=== PATIENT | female | born 1955 | race Hispanic/Latino ===

== ENCOUNTER → 2018-08-23 | Outpatient (CLI) | payer OTHER ==
[~2018-08-23] MED LIST: ASPI-555 PO; ATOR20TA65 PO; METO50TA18 PO; PANT40TA PO; VENTOLIN IH
== END | disposition home or self-care (01) ==
LOC: RAH 08:36
PROVIDERS: ATTEND Internal Medicine Cardiovascular Disease
DX: R00.2 Palpitations (principal); R07.89 Other chest pain
CPT/HCPCS: 78452; 93017; A9500 ×2

== ENCOUNTER → 2019-01-16 | Outpatient (CLI) | payer OTHER ==
[2019-01-16 10:49] LABS: HEMOGLOBIN A1C 6.8 % (4.0-6.0)
[2019-01-16 10:56] LABS: ALBUMIN 3.7 g/dL (3.5-5.0); BILIRUBIN,TOTAL 1.3 mg/dL (0.2-1.0)
== END | disposition home or self-care (01) ==
LOC: LAB 10:08
PROVIDERS: ATTEND Family Medicine
DX: I11.9 Hypertensive heart disease without heart failure (principal); E78.00 Pure hypercholesterolemia, unspecified; E11.59 Type 2 diabetes mellitus with other circulatory complications; E55.9 Vitamin D deficiency, unspecified
CPT/HCPCS: 36415; 80053; 80061; 82043; 82306; 83036

== ENCOUNTER → 2019-01-23 | Outpatient (CLI) | payer OTHER | END | disposition home or self-care (01) | LOC: OIH 13:18 | PROVIDERS: ATTEND Family Medicine | DX: R07.9 Chest pain, unspecified (principal) | CPT/HCPCS: 71100; 72070 ==

== ENCOUNTER → 2019-05-25 | Outpatient (CLI) | payer OTHER | END | disposition home or self-care (01) | LOC: OIH 10:12 | PROVIDERS: ATTEND Family Medicine | DX: M16.11 Unilateral primary osteoarthritis, right hip (principal); M85.861 Other specified disorders of bone density and structure, right lower leg | CPT/HCPCS: 73502 ==

== ENCOUNTER 2019-08-24 06:57 | Day surgery (SDC) | payer OTHER ==
[~2019-08-24] VITALS: Ht 152.4 cm; Wt 67.1 kg
[~2019-08-24 06:57] MED LIST changes: +ATOR-2 PO; -ATOR20TA65 PO; +CETI10CA5 PO; +CHOL500062 PO; +FEXO180T94 PO; +FLUT16H NASAL; +FOLI0.4T2 PO; +LISI2.5T2 PO; +METF500S7 PO; -PANT40TA PO; +UBID100C10 PO; -VENTOLIN IH; +VITAMIN B12 PO
[2019-08-24] MEDS ORDERED: SODIUM CHLORIDE 0.9% 1000ML 1,000 ML IV ONE (07:05)
[2019-08-24 08:26] VITALS: BP 145/71
[2019-08-24] MEDS ORDERED: LIDOCAINE HCL 2% 20ML ONE (09:20)
[2019-08-24] MEDS ORDERED: PROPOFOL 10 MG/ML 20ML VIAL IV ONE ×4 (09:20→09:58)
[2019-08-24 10:03] VITALS: BP 104/55
[2019-08-24 10:08] VITALS: BP 102/57
[2019-08-24 10:14] VITALS: BP 113/61
[2019-08-24 10:20] VITALS: BP 118/67
[2019-08-24 10:30] VITALS: BP 125/72
== END 2019-08-24 10:45 | disposition home or self-care (01) ==
LOC: ENDO 06:57 → DAH 06:57 → ENDO 10:45
PROVIDERS: ATTEND Internal Medicine Gastroenterology
DX: K63.5 Polyp of colon (principal); K29.50 Unspecified chronic gastritis without bleeding; K64.0 First degree hemorrhoids; K57.30 Diverticulosis of large intestine without perforation or abscess without bleeding; E11.9 Type 2 diabetes mellitus without complications; I10 Essential (primary) hypertension; I25.10 Atherosclerotic heart disease of native coronary artery without angina pectoris; F41.9 Anxiety disorder, unspecified; F32.9 Major depressive disorder, single episode, unspecified; E78.2 Mixed hyperlipidemia; Z80.0 Family history of malignant neoplasm of digestive organs; Z79.899 Other long term (current) drug therapy; Z86.010 Personal history of colon polyps; Z90.710 Acquired absence of both cervix and uterus; Z95.1 Presence of aortocoronary bypass graft; Z79.82 Long term (current) use of aspirin; Z72.89 Other problems related to lifestyle
CPT/HCPCS: 43239; 45380; 82948 ×2; A4215; A4221; A4222; A4223; A4606; A4620; A4663; J2704 ×4; J3490; J7030

== ENCOUNTER → 2019-11-16 | Outpatient (CLI) | payer OTHER ==
[2019-11-16 09:26] LABS: BASOPHILS % (AUTO) 0.4 % (0.0-5.0); EOSINOPHILS % (AUTO) 3.5 % (0.0-8.0); HEMATOCRIT 41.7 % (36-48); LYMPHOCYTES % (AUTO) 36.6 % (21.0-51.0); MEAN CORPUSCULAR HEMOGLOBIN 29.8 pg (27.0-33.0); MEAN CORPUSCULAR HGB CONC 31.9 g/dL (32.0-36.0); MEAN CORPUSCULAR VOLUME 93.3 fL (79-99); NEUTROPHILS % (AUTO) 52.2 % (40.0-77.0); PLATELET COUNT (AUTO) 254 K/uL (130-400); RED BLOOD CELL COUNT(AUTO) 4.47 MIL/uL (4.00-5.50); RED CELL DISTRIBUTION WIDTH 12.7 % (11.0-15.5)
[2019-11-16 09:34] LABS: HEMOGLOBIN A1C 7.4 % (4.0-6.0)
[2019-11-16 09:46] LABS: ALBUMIN 3.6 g/dL (3.5-5.0); BILIRUBIN,TOTAL 1.4 mg/dL (0.2-1.0); CREATININE 1.3 mg/dL (0.5-1.5); POTASSIUM 4.2 mmol/L (3.5-5.1); THYROID STIMULATING HORMONE 3.46 uIU/mL (0.36-3.74); TOTAL PROTEIN, SERUM 7.7 g/dL (6.0-8.3)
== END | disposition home or self-care (01) ==
LOC: LAB 08:49
PROVIDERS: ATTEND Family Medicine
DX: I11.9 Hypertensive heart disease without heart failure (principal); E55.9 Vitamin D deficiency, unspecified; F32.1 Major depressive disorder, single episode, moderate; E11.59 Type 2 diabetes mellitus with other circulatory complications; E66.09 Other obesity due to excess calories
CPT/HCPCS: 36415; 80053; 80061; 82043; 82306; 82570; 83036; 84443; 85025

== ENCOUNTER 2020-08-22 02:21 | Inpatient (IN) | payer OTHER, MEDICARE ==
[~2020-08-22] VITALS: Ht 152.4 cm; Wt 71.4 kg
[~2020-08-22 02:21] MED LIST changes: -ASPI-555 PO; +ASPI-556 PO
[2020-08-22] MEDS ORDERED: ONDANSETRON HCL 4 MG/2 ML VIAL ONE (02:38)
[2020-08-22] MEDS ORDERED: FAMOTIDINE/PF 20 MG/2 ML VIAL IV ONE (02:38)
[2020-08-22] MEDS ORDERED: PANTOPRAZOLE 40 MG/VIAL ONE (02:38)
[2020-08-22] MEDS ORDERED: METOCLOPRAMIDE 10 MG/2 ML VIAL ONE (02:38)
[2020-08-22] MEDS ORDERED: SODIUM CHLORIDE 0.9% 1000ML 1,000 ML IV ONE (02:39)
[2020-08-22 02:59] LABS: BASOPHILS % (AUTO) 0.2 % (0.0-5.0); EOSINOPHILS % (AUTO) 1.3 % (0.0-8.0); HEMATOCRIT 39.5 % (36-48); MEAN CORPUSCULAR HEMOGLOBIN 30.6 pg (27.0-33.0); MEAN CORPUSCULAR HGB CONC 33.9 g/dL (32.0-36.0); MEAN CORPUSCULAR VOLUME 90.2 fL (79-99); MONOCYTES % (AUTO) 6.2 % (3.0-13.0); NEUTROPHILS % (AUTO) 75.9 % (40.0-77.0); PLATELET COUNT (AUTO) 249 K/uL (130-400); RED BLOOD CELL COUNT(AUTO) 4.38 MIL/uL (4.00-5.50); RED CELL DISTRIBUTION WIDTH 12.4 % (11.0-15.5)
[2020-08-22 03:12] LABS: CREATININE 1.2 mg/dL (0.5-1.5); POTASSIUM 3.7 mmol/L (3.5-5.1)
[2020-08-22 03:16] LABS: TOTAL PROTEIN, SERUM 7.6 g/dL (6.0-8.3)
[2020-08-22] MEDS ORDERED: LIDOCAINE HCL 2% VISCOUS 15 ML UDCUP ONE (04:10)
[2020-08-22] MEDS ORDERED: MAG HYDROX/AL HYDROX/SIMETH ES 30 ML SUSP UDCUP ONE (04:10)
[2020-08-22] MEDS ORDERED: ZOSYN 3.375GM+NS 50ML 50 ML IV ONE ×2 (05:04→14:32)
[2020-08-22] MEDS ORDERED: MORPHINE SULFATE 2 MG/ML 1ML SYG ONE (05:05)
[2020-08-22] MEDS ORDERED: HYDRALAZINE HCL 20 MG/ML VIAL ONE (06:12)
[2020-08-22] MEDS ORDERED: ONDANSETRON HCL 4 MG/2 ML VIAL IVP PRN (07:15)
[2020-08-22] MEDS ORDERED: MORPHINE SULFATE 2 MG/ML 1ML SYG IVP PRN (07:15)
[2020-08-22] MEDS ORDERED: ACETAMINOPHEN 650 MG SUPPOSITORY RC PRN (07:30)
[2020-08-22] MEDS: LACTATED RINGERS 1000ML 1,000 ML IV SCH ×2 (07:30→20:50)
[2020-08-22] MEDS ORDERED: HYDRALAZINE HCL 20 MG/ML VIAL IV PRN (07:30)
[2020-08-22] MEDS: PANTOPRAZOLE 40 MG/VIAL IVP SCH (09:00)
[2020-08-22] MEDS: ZOSYN 3.375GM+NS 50ML 50 ML IV SCH ×2 (13:00→21:09)
[2020-08-22 16:30] VITALS: BP 142/70
[2020-08-22 20:00] VITALS: BP 160/76
[2020-08-23] VITALS: BP 150/63
[2020-08-23 04:00] VITALS: BP 150/62
[2020-08-23] MEDS: ZOSYN 3.375GM+NS 50ML 50 ML IV SCH ×3 (05:18→20:25)
[2020-08-23] MEDS: PANTOPRAZOLE 40 MG/VIAL IVP SCH (08:47)
[2020-08-23] MEDS: LACTATED RINGERS 1000ML 1,000 ML IV SCH ×3 (08:47→21:30)
[2020-08-23] MEDS: [UNRECOGNIZED DRUG - REMARK] PO SCH (09:00)
[2020-08-23 09:19] LABS: BASOPHILS % (AUTO) 0.3 % (0.0-5.0); EOSINOPHILS % (AUTO) 2.4 % (0.0-8.0); HEMATOCRIT 36.7 % (36-48); LYMPHOCYTES % (AUTO) 28.5 % (21.0-51.0); MEAN CORPUSCULAR HGB CONC 34.3 g/dL (32.0-36.0); MEAN CORPUSCULAR VOLUME 90.2 fL (79-99); MONOCYTES % (AUTO) 9.4 % (3.0-13.0); NEUTROPHILS % (AUTO) 59.2 % (40.0-77.0); PLATELET COUNT (AUTO) 201 K/uL (130-400); RED BLOOD CELL COUNT(AUTO) 4.07 MIL/uL (4.00-5.50); RED CELL DISTRIBUTION WIDTH 12.7 % (11.0-15.5); WHITE BLOOD COUNT (AUTO) 8.6 K/uL (4.8-10.8)
[2020-08-23 09:30] VITALS: BP 152/79
[2020-08-23 09:34] LABS: ALBUMIN 3.3 g/dL (3.5-5.0); BILIRUBIN,TOTAL 2.8 mg/dL (0.2-1.0); CREATININE 1.2 mg/dL (0.5-1.5); POTASSIUM 3.7 mmol/L (3.5-5.1); TOTAL PROTEIN, SERUM 6.7 g/dL (6.0-8.3)
[2020-08-23] MEDS: FLUTICASONE PROPIONATE 50MCG/SPRAY 16 GM BOTTLE NS SCH (10:16)
[2020-08-23 13:55] VITALS: BP 132/89
[2020-08-23 17:06] VITALS: BP 117/69
--- NOTE | 2020-08-23 17:20 | NUR ---
INITIAL SW spoke with patient. Patient lives with spouse, Param Granger. No home services. DME: [facility], glucometer (no insulin). Patient drives and is able to complete ADL's independently. PCP is Dr. Maria Teresa Benitez. Pharmacy is [facility]. DCP is home. Addendum: 08/23/20 at 1722 by TIRSO BEAVERS SS Amended: Links added.
[2020-08-23 20:04] VITALS: BP 126/64
[2020-08-23] MEDS: METOPROLOL TARTRATE 50 MG TAB PO SCH (20:26)
[2020-08-23] MEDS: LISINOPRIL 2.5 MG TABLET PO SCH (20:26)
[2020-08-23] MEDS: ATORVASTATIN CALCIUM 40 MG TABLET PO SCH (20:26)
[2020-08-23] MEDS: CETIRIZINE HCL 5 MG TABLET PO SCH (20:28)
[2020-08-23] MEDS: FOLIC ACID 1 MG TABLET PO SCH (20:28)
[2020-08-23] MEDS: CHOLECALCIFEROL 5000 UNIT PO SCH (20:28)
[2020-08-24] VITALS (22 sets, daily range): BP systolic 97–176; BP diastolic 47–85
[2020-08-24] MEDS: ZOSYN 3.375GM+NS 50ML 50 ML IV SCH ×3 (04:31→19:47)
[2020-08-24 05:47] LABS: HEMATOCRIT 34.3 % (36-48); MEAN CORPUSCULAR HEMOGLOBIN 30.2 pg (27.0-33.0); MEAN CORPUSCULAR HGB CONC 33.5 g/dL (32.0-36.0); RED BLOOD CELL COUNT(AUTO) 3.81 MIL/uL (4.00-5.50); RED CELL DISTRIBUTION WIDTH 12.5 % (11.0-15.5); WHITE BLOOD COUNT (AUTO) 6.8 K/uL (4.8-10.8)
[2020-08-24 06:37] LABS: CREATININE 1.2 mg/dL (0.5-1.5); POTASSIUM 3.7 mmol/L (3.5-5.1)
[2020-08-24] MEDS: [UNRECOGNIZED DRUG - REMARK] PO SCH (09:00)
[2020-08-24] MEDS ORDERED: IOHEXOL-350 50ML VIAL IV ONE (10:14)
[2020-08-24] MEDS: FLUTICASONE PROPIONATE 50MCG/SPRAY 16 GM BOTTLE NS SCH (10:27)
[2020-08-24] MEDS: PANTOPRAZOLE 40 MG/VIAL IVP SCH (10:27)
[2020-08-24] MEDS ORDERED: FENTANYL CITRATE PF 50 MCG/1 ML 2ML VIAL ONE (11:51)
[2020-08-24] MEDS ORDERED: MIDAZOLAM HCL 1 MG/ML 2ML VIAL ONE ×2 (11:52→12:35)
[2020-08-24] MEDS ORDERED: GLUCAGON 1MG KIT 1 MG ML ONE (11:52)
[2020-08-24] MEDS: INDOMETHACIN 50 MG SUPP.RECT RC SCH ×2 (12:40→14:00)
[2020-08-24] MEDS: LACTATED RINGERS 1000ML 1,000 ML IV SCH (14:46)
[2020-08-24] MEDS: CETIRIZINE HCL 5 MG TABLET PO SCH (17:56)
[2020-08-24] MEDS: FOLIC ACID 1 MG TABLET PO SCH (19:44)
[2020-08-24] MEDS: ATORVASTATIN CALCIUM 40 MG TABLET PO SCH (19:44)
[2020-08-24] MEDS: METOPROLOL TARTRATE 50 MG TAB PO SCH (19:45)
[2020-08-24] MEDS: CHOLECALCIFEROL 5000 UNIT PO SCH (19:45)
[2020-08-24] MEDS: LISINOPRIL 2.5 MG TABLET PO SCH (19:45)
[2020-08-25] VITALS (26 sets, daily range): BP systolic 104–170; BP diastolic 49–89
[2020-08-25] MEDS: LACTATED RINGERS 1000ML 1,000 ML IV SCH (02:03)
[2020-08-25] MEDS: ZOSYN 3.375GM+NS 50ML 50 ML IV SCH ×3 (04:34→13:00)
[2020-08-25 05:51] LABS: HEMATOCRIT 34.8 % (36-48); MEAN CORPUSCULAR HEMOGLOBIN 30.4 pg (27.0-33.0); MEAN CORPUSCULAR HGB CONC 34.2 g/dL (32.0-36.0); RED BLOOD CELL COUNT(AUTO) 3.91 MIL/uL (4.00-5.50); RED CELL DISTRIBUTION WIDTH 12.3 % (11.0-15.5); WHITE BLOOD COUNT (AUTO) 8.4 K/uL (4.8-10.8)
[2020-08-25 06:05] LABS: INR 1.07 (0.85-1.15); PROTHROMBIN TIME 11.4 SEC (9.6-11.6)
[2020-08-25 06:06] LABS: CREATININE 1.1 mg/dL (0.5-1.5); POTASSIUM 3.8 mmol/L (3.5-5.1)
[2020-08-25] MEDS: [UNRECOGNIZED DRUG - REMARK] PO SCH (09:00)
[2020-08-25] MEDS: FLUTICASONE PROPIONATE 50MCG/SPRAY 16 GM BOTTLE NS SCH (09:00)
[2020-08-25] MEDS: PANTOPRAZOLE 40 MG/VIAL IVP SCH (09:40)
[2020-08-25] MEDS ORDERED: SODIUM CHLORIDE 0.9% 1000ML 1,000 ML IV ONE (11:11)
[2020-08-25] MEDS ORDERED: LIDOCAINE PF 2% 5ML ABBOJECT ONE ×2 (11:34→11:40)
[2020-08-25] MEDS ORDERED: DEXAMETHASONE SOD PHOSPHATE 10MG/ML 1ML VIAL ONE (11:34)
[2020-08-25] MEDS ORDERED: SUCCINYLCHOLINE CHLORIDE 20 MG/ML 10 ML VIAL ONE (11:34)
[2020-08-25] MEDS ORDERED: ROCURONIUM 10MG/1ML SYR 10 MG/ML ML ONE (11:35)
[2020-08-25] MEDS ORDERED: PROPOFOL 10 MG/ML 20ML VIAL IV ONE ×2 (11:35→11:44)
[2020-08-25] MEDS ORDERED: ONDANSETRON HCL 4 MG/2 ML VIAL ONE (11:35)
[2020-08-25] MEDS ORDERED: MIDAZOLAM HCL 1 MG/ML 2ML VIAL ONE (11:35)
[2020-08-25] MEDS ORDERED: FENTANYL CITRATE PF 50 MCG/1 ML 2ML VIAL ONE (11:35)
[2020-08-25] MEDS ORDERED: GLYCOPYRROLATE 1 MG/5 ML SYRINGE ONE (11:35)
[2020-08-25] MEDS ORDERED: NEOSTIGMINE 5MG/5ML SYR IV ONE (11:35)
[2020-08-25] MEDS ORDERED: BUPIVACAINE/PF 0.5% 10ML VIAL ONE (12:15)
[2020-08-25] MEDS ORDERED: MEPERIDINE-PF 25 MG/ML SYG ONE (13:22)
[2020-08-25] MEDS: CETIRIZINE HCL 5 MG TABLET PO SCH (17:59)
[2020-08-25] MEDS: CHOLECALCIFEROL 5000 UNIT PO SCH (21:00)
[2020-08-26] MEDS: ATORVASTATIN CALCIUM 40 MG TABLET PO SCH (00:03)
[2020-08-26] MEDS: FOLIC ACID 1 MG TABLET PO SCH ×2 (00:04→21:05)
[2020-08-26] MEDS: LISINOPRIL 2.5 MG TABLET PO SCH ×2 (00:04→21:03)
[2020-08-26] MEDS: METOPROLOL TARTRATE 50 MG TAB PO SCH ×2 (00:04→21:04)
[2020-08-26] MEDS: ZOSYN 3.375GM+NS 50ML 50 ML IV SCH ×4 (00:07→21:05)
[2020-08-26 04:00] VITALS: BP 137/57
[2020-08-26 06:31] LABS: ALBUMIN 3.1 g/dL (3.5-5.0); BILIRUBIN,TOTAL 4.2 mg/dL (0.2-1.0); CREATININE 1.2 mg/dL (0.5-1.5); MAGNESIUM 2.8 mg/dL (1.80-2.40); POTASSIUM 3.4 mmol/L (3.5-5.1); TOTAL PROTEIN, SERUM 6.8 g/dL (6.0-8.3)
[2020-08-26] MEDS: [UNRECOGNIZED DRUG - REMARK] PO SCH (07:42)
[2020-08-26 07:54] VITALS: BP 146/88
[2020-08-26] MEDS: PANTOPRAZOLE 40 MG/VIAL IVP SCH (08:50)
[2020-08-26] MEDS: LACTATED RINGERS 1000ML 1,000 ML IV SCH ×2 (08:50→17:21)
[2020-08-26] MEDS: FLUTICASONE PROPIONATE 50MCG/SPRAY 16 GM BOTTLE NS SCH (08:50)
[2020-08-26 11:29] VITALS: BP 142/69
[2020-08-26] MEDS: CETIRIZINE HCL 5 MG TABLET PO SCH (16:02)
[2020-08-26 17:56] VITALS: BP 136/92
[2020-08-26 19:30] VITALS: BP 118/65
[2020-08-26] MEDS: CHOLECALCIFEROL 5000 UNIT PO SCH (21:00)
[2020-08-26 23:21] VITALS: BP 140/77
[2020-08-27 04:00] VITALS: BP 140/75
[2020-08-27] MEDS: ZOSYN 3.375GM+NS 50ML 50 ML IV SCH ×2 (04:35→12:13)
[2020-08-27 06:38] LABS: BASOPHILS % (AUTO) 0.2 % (0.0-5.0); EOSINOPHILS % (AUTO) 1.6 % (0.0-8.0); HEMATOCRIT 29.4 % (36-48); LYMPHOCYTES % (AUTO) 12.7 % (21.0-51.0); MEAN CORPUSCULAR HEMOGLOBIN 29.8 pg (27.0-33.0); MEAN CORPUSCULAR HGB CONC 33.3 g/dL (32.0-36.0); MEAN CORPUSCULAR VOLUME 89.4 fL (79-99); MONOCYTES % (AUTO) 8.1 % (3.0-13.0); NEUTROPHILS % (AUTO) 76.8 % (40.0-77.0); PLATELET COUNT (AUTO) 180 K/uL (130-400); RED BLOOD CELL COUNT(AUTO) 3.29 MIL/uL (4.00-5.50); WHITE BLOOD COUNT (AUTO) 12.6 K/uL (4.8-10.8)
[2020-08-27 06:51] LABS: ALBUMIN 2.5 g/dL (3.5-5.0); BILIRUBIN,DIRECT 0.8 mg/dL (0.0-0.3); BILIRUBIN,TOTAL 3.9 mg/dL (0.2-1.0); CREATININE 0.4 mg/dL (0.5-1.5); MAGNESIUM 1.8 mg/dL (1.80-2.40); PHOSPHORUS 1.4 mg/dL (2.5-4.9); POTASSIUM 3.2 mmol/L (3.5-5.1); TOTAL PROTEIN, SERUM 6.3 g/dL (6.0-8.3)
[2020-08-27] MEDS: LACTATED RINGERS 1000ML 1,000 ML IV SCH (07:30)
[2020-08-27] MEDS ORDERED: LIDOCAINE HCL-MPF 1% 2ML VIAL IV PRN (07:45)
[2020-08-27] MEDS ORDERED: POTASSIUM CHLORIDE 20MEQ/100ML 100 ML IV PRN (07:45)
[2020-08-27] MEDS ORDERED: POTASSIUM CHLORIDE 10% ELIXIR 20 MEQ/15 ML UDCUP PO PRN (07:45)
[2020-08-27] MEDS ORDERED: POTASSIUM CHLORIDE 20 MEQ ERTAB PO PRN (07:45)
[2020-08-27 08:00] VITALS: BP 151/66
[2020-08-27] MEDS: PANTOPRAZOLE 40 MG/VIAL IVP SCH (09:00)
[2020-08-27] MEDS: [UNRECOGNIZED DRUG - REMARK] PO SCH (09:00)
[2020-08-27 11:52] VITALS: BP 146/84
[2020-08-27] MEDS: FLUTICASONE PROPIONATE 50MCG/SPRAY 16 GM BOTTLE NS SCH (12:14)
[2020-08-27] MEDS ORDERED: POTASSIUM CHLORIDE 20 MEQ ERTAB PO SCH (14:15)
--- NOTE | 2020-08-27 15:30 | NUR ---
DISCHARGE PATIENT GIVEN DISCHARGE INSTRUCTIONS VIA TEACH BACK. 18G PIV TO RAC DISCONTINUED, TIP INTACT. PATIENT TO FOLLOW UP WITH DR. PRABHAKAR AND DR. MELCHOR AND PCP. NO RX GIVEN, PATIENT TO HOLD ATORVASTATIN FOR 2 WEEKS THEN RESTART MEDICATION. PATIENT STABLE AT THIS TIME, WHEELED TO [facility] BY HANG DALLAS FOR DISCHARGE.
== END 2020-08-27 15:30 | disposition home or self-care (01) | DRG 419 ==
LOC: EDH 02:21 → EDHIP 05:00 → OBSVTOIN 15:19 → 3BH 16:34
PROVIDERS: ADMIT Internal Medicine Critical Care Medicine; ATTEND Internal Medicine Critical Care Medicine
PROC: 0FC98ZZ Extirpation of Matter from Common Bile Duct, Via Natural or Artificial Opening Endoscopic (ICD-10-PCS; 2020-08-24)
PROC: 0FT44ZZ Resection of Gallbladder, Percutaneous Endoscopic Approach (ICD-10-PCS; principal; 2020-08-25 11:35)
DX: K80.62 Calculus of gallbladder and bile duct with acute cholecystitis without obstruction (principal); N18.9 Chronic kidney disease, unspecified; J44.9 Chronic obstructive pulmonary disease, unspecified; I12.9 Hypertensive chronic kidney disease with stage 1 through stage 4 chronic kidney disease, or unspecified chronic kidney disease; Z20.828 Contact with and (suspected) exposure to other viral communicable diseases; E78.5 Hyperlipidemia, unspecified; K82.8 Other specified diseases of gallbladder; E11.22 Type 2 diabetes mellitus with diabetic chronic kidney disease; I25.10 Atherosclerotic heart disease of native coronary artery without angina pectoris; R19.7 Diarrhea, unspecified; Z87.891 Personal history of nicotine dependence; Z95.1 Presence of aortocoronary bypass graft; Z79.84 Long term (current) use of oral hypoglycemic drugs; Z79.899 Other long term (current) drug therapy; Z90.710 Acquired absence of both cervix and uterus; Z79.82 Long term (current) use of aspirin
CPT/HCPCS: 36415; 43262; 43264; 71045; 74181; 74330; 76705; 78226; 80048; 80053; 80076; 82948; 83605; 83690; 83735; 84100; 84484; 85025; 85027; 85610; 87426; 93005; A9537; C1769; C1773; C9113; G0378; J0330; J0360; J1100; J1610; J2001; J2175; J2250; J2405; J2543; J2704; J2710; J2765; J3010; J3490; J7030; J7120; Q9967; U0003

== ENCOUNTER 2021-05-12 16:49 | Observation (INO) | payer OTHER, MEDICARE ==
[~2021-05-12] VITALS: Ht 152.4 cm; Wt 63.6 kg
[~2021-05-12 16:49] MED LIST changes: -ATOR-2 PO; -FOLI0.4T2 PO; +FOLI0.4T6 PO; +LISI2.5T13 PO; -LISI2.5T2 PO; -METF500S7 PO; -VITAMIN B12 PO
[2021-05-12 16:54] VITALS: BP 167/67
[2021-05-12] MEDS ORDERED: NITROGLYCERIN 0.4 MG SL TAB SL PRN ×2 (17:00→20:30)
[2021-05-12] MEDS ORDERED: NITROGLYCERIN 1GM OINT 1 INCH/1GM TD ONE (17:00)
[2021-05-12] MEDS ORDERED: PRAV40TA3 PO (17:26)
[2021-05-12 17:35] VITALS: BP 106/54
[2021-05-12 18:02] LABS: BASOPHILS % (AUTO) 0.2 % (0.0-5.0); EOSINOPHILS % (AUTO) 0.5 % (0.0-8.0); HEMATOCRIT 36.5 % (36-48); LYMPHOCYTES % (AUTO) 12.1 % (21.0-51.0); MEAN CORPUSCULAR HEMOGLOBIN 30.9 pg (27.0-33.0); MEAN CORPUSCULAR HGB CONC 33.2 g/dL (32.0-36.0); MEAN CORPUSCULAR VOLUME 93.1 fL (79-99); MONOCYTES % (AUTO) 10.2 % (3.0-13.0); NEUTROPHILS % (AUTO) 76.5 % (40.0-77.0); PLATELET COUNT (AUTO) 196 K/uL (130-400); RED BLOOD CELL COUNT(AUTO) 3.92 MIL/uL (4.00-5.50); RED CELL DISTRIBUTION WIDTH 13.2 % (11.0-15.5); WHITE BLOOD COUNT (AUTO) 13.1 K/uL (4.8-10.8)
[2021-05-12 18:12] LABS: INR 0.99 (0.85-1.15); PROTHROMBIN TIME 10.8 SEC (9.6-11.6)
[2021-05-12 18:13] LABS: PARTIAL THROMBOPLASTIN TIME 22.4 SEC (26.3-35.5)
[2021-05-12 18:20] LABS: B-TYPE NATRIURETIC PEPTIDE 150 pg/mL (0-100)
[2021-05-12 18:26] LABS: ALBUMIN 3.3 g/dL (3.5-5.0); BILIRUBIN,TOTAL 1.6 mg/dL (0.2-1.0); CREATININE 1.2 mg/dL (0.5-1.5); POTASSIUM 3.9 mmol/L (3.5-5.1); TOTAL PROTEIN, SERUM 7.2 g/dL (6.0-8.3)
[2021-05-12 19:02] VITALS: BP 139/66
[2021-05-12 19:42] VITALS: BP 130/56
[2021-05-12] MEDS ORDERED: ONDANSETRON 4MG INJ IV PRN (20:30)
[2021-05-12] MEDS ORDERED: DiphenhydrAMINE HCL 50 MG/ML VIAL IV PRN (20:30)
[2021-05-12] MEDS ORDERED: LACTULOSE 20 GM/30 ML UDCUP PO PRN (20:30)
[2021-05-12] MEDS ORDERED: ACETAMINOPHEN 325 MG TAB PO PRN ×2 (20:30)
[2021-05-12] MEDS ORDERED: MORPHINE 4 MG SYG IV PRN (20:30)
[2021-05-12] MEDS: FOLIC ACID 0.4 MG PO SCH (21:00)
[2021-05-12] MEDS: INSULIN HUMULIN R 100 UNIT/ML 3ML SQ SCH (21:00)
[2021-05-12] MEDS: CHOLECALCIFEROL 5000 UNIT PO SCH (21:00)
[2021-05-12 21:46] LABS: THYROID STIMULATING HORMONE 0.75 uIU/mL (0.36-3.74)
[2021-05-12] MEDS: METOPROLOL TARTRATE 25 MG TAB PO SCH (21:50)
[2021-05-12] MEDS: ATORVASTATIN 40 MG TABLET PO SCH (21:50)
[2021-05-12 22:46] VITALS: BP 132/62
[2021-05-13] VITALS (10 sets, daily range): BP systolic 109–148; BP diastolic 6–74
[2021-05-13 06:24] LABS: HEMATOCRIT 36.7 % (36-48); MEAN CORPUSCULAR HGB CONC 33.2 g/dL (32.0-36.0); MEAN CORPUSCULAR VOLUME 93.1 fL (79-99); RED BLOOD CELL COUNT(AUTO) 3.94 MIL/uL (4.00-5.50); RED CELL DISTRIBUTION WIDTH 13.2 % (11.0-15.5); WHITE BLOOD COUNT (AUTO) 10.9 K/uL (4.8-10.8)
[2021-05-13 06:59] LABS: ALBUMIN 3.1 g/dL (3.5-5.0); BILIRUBIN,TOTAL 2.6 mg/dL (0.2-1.0); CREATININE 0.9 mg/dL (0.5-1.5); MAGNESIUM 1.9 mg/dL (1.80-2.40); POTASSIUM 3.6 mmol/L (3.5-5.1); TOTAL PROTEIN, SERUM 7.2 g/dL (6.0-8.3)
[2021-05-13] MEDS: INSULIN HUMULIN R 100 UNIT/ML 3ML SQ SCH ×4 (07:30→20:39)
[2021-05-13] MEDS ORDERED: ENOXAPARIN SODIUM 30 MG/0.3 ML SQ SCH (09:00)
[2021-05-13] MEDS ORDERED: [UNRECOGNIZED DRUG - REMARK] PO SCH (09:00)
[2021-05-13] MEDS: FLUTICASONE PROPIONATE 50MCG/SPRAY 16 GM BOTTLE EN SCH (09:00)
[2021-05-13] MEDS: FAMOTIDINE 20MG TAB PO SCH (10:02)
[2021-05-13] MEDS: ASPIRIN 81 MG EC TAB PO SCH (10:03)
[2021-05-13] MEDS ORDERED: CETIRIZINE HCL 5 MG TABLET PO SCH (17:00)
[2021-05-13] MEDS: ATORVASTATIN 40 MG TABLET PO SCH (20:24)
[2021-05-13] MEDS: FOLIC ACID 0.4 MG PO SCH (20:24)
[2021-05-13] MEDS: METOPROLOL TARTRATE 25 MG TAB PO SCH (20:24)
[2021-05-13] MEDS: CHOLECALCIFEROL 5000 UNIT PO SCH (20:25)
[2021-05-13] MEDS ORDERED: CLOPIDOGREL 300MG TAB PO SCH (20:55)
[2021-05-14] VITALS (11 sets, daily range): BP systolic 102–123; BP diastolic 51–61
[2021-05-14 04:01] LABS: HEMATOCRIT 36.6 % (36-48); MEAN CORPUSCULAR HGB CONC 33.3 g/dL (32.0-36.0); MEAN CORPUSCULAR VOLUME 92.9 fL (79-99); RED BLOOD CELL COUNT(AUTO) 3.94 MIL/uL (4.00-5.50); RED CELL DISTRIBUTION WIDTH 13.2 % (11.0-15.5); WHITE BLOOD COUNT (AUTO) 9.3 K/uL (4.8-10.8)
[2021-05-14 04:15] LABS: INR 1.06 (0.85-1.15); PROTHROMBIN TIME 11.5 SEC (9.6-11.6)
[2021-05-14 04:16] LABS: PARTIAL THROMBOPLASTIN TIME 30.9 SEC (26.3-35.5)
[2021-05-14 04:18] LABS: BILIRUBIN,DIRECT 0.3 mg/dL (0.0-0.3); BILIRUBIN,TOTAL 1.8 mg/dL (0.2-1.0); CREATININE 1.1 mg/dL (0.5-1.5); POTASSIUM 3.8 mmol/L (3.5-5.1); TOTAL PROTEIN, SERUM 7.2 g/dL (6.0-8.3)
[2021-05-14] MEDS: INSULIN HUMULIN R 100 UNIT/ML 3ML SQ SCH ×2 (07:30→11:30)
[2021-05-14] MEDS ORDERED: HEPARIN 10,000 UNIT/10ML (1,000 UNIT/ML) VIAL ONE (08:07)
[2021-05-14] MEDS ORDERED: IOHEXOL-350 50ML VIAL IV ONE (08:07)
[2021-05-14] MEDS ORDERED: IOHEXOL 350 MG/ML 100ML INFUS..BTL IV ONE (08:07)
[2021-05-14] MEDS ORDERED: LIDOCAINE HCL 400MG/20ML VIAL ONE (08:08)
[2021-05-14] MEDS ORDERED: MIDAZOLAM HCL 1 MG/ML 2ML VIAL ONE (08:17)
[2021-05-14] MEDS: FAMOTIDINE 20MG TAB PO SCH (08:30)
[2021-05-14] MEDS: ASPIRIN 81 MG EC TAB PO SCH (08:30)
[2021-05-14] MEDS: FLUTICASONE PROPIONATE 50MCG/SPRAY 16 GM BOTTLE EN SCH (09:00)
[2021-05-14] MEDS ORDERED: CLOPIDOGREL 75MG TAB PO SCH (09:00)
[2021-05-14] MEDS ORDERED: NITR0.4T50 SL (12:01)
[2021-05-14] MEDS ORDERED: CLOP75TA32 PO (13:06)
[2021-05-14] MEDS ORDERED: CLOP75TA14 PO (13:23)
[2021-05-15] MEDS ORDERED: CLOPIDOGREL 75MG TAB PO SCH (09:00)
== END 2021-05-14 14:50 | disposition home or self-care (01) ==
LOC: EDH 16:49 → EDHIP 20:42 → 4DH 05-13 03:43
PROVIDERS: ADMIT Internal Medicine Critical Care Medicine; ATTEND Internal Medicine Critical Care Medicine
DX: I21.4 Non-ST elevation (NSTEMI) myocardial infarction (principal); I24.9 Acute ischemic heart disease, unspecified; I10 Essential (primary) hypertension; I25.10 Atherosclerotic heart disease of native coronary artery without angina pectoris; E11.9 Type 2 diabetes mellitus without complications; E78.00 Pure hypercholesterolemia, unspecified; E78.5 Hyperlipidemia, unspecified; J45.909 Unspecified asthma, uncomplicated; R77.8 Other specified abnormalities of plasma proteins; Z79.02 Long term (current) use of antithrombotics/antiplatelets; Z79.82 Long term (current) use of aspirin; Z79.899 Other long term (current) drug therapy; Z90.710 Acquired absence of both cervix and uterus; Z95.1 Presence of aortocoronary bypass graft; Z79.4 Long term (current) use of insulin; Z90.49 Acquired absence of other specified parts of digestive tract; Z98.890 Other specified postprocedural states
CPT/HCPCS: 36415 ×3; 71045; 76705; 78582; 80048; 80053 ×2; 80076; 82150; 82550 ×4; 82948 ×7; 83690; 83735; 83874 ×3; 83880 ×2; 84145; 84443; 84484 ×5; 85025; 85027 ×2; 85378; 85610 ×2; 85730 ×2; 93005 ×2; 93459; 93970; 96372; 99285 ×2; A9540; A9558; C1760; C1894; G0378 ×38; J1644; J1650; J1815; J2250; J3490; Q9965; Q9967 ×2; 99156; 99157

== ENCOUNTER 2021-05-24 02:40 | Emergency (ER) | payer OTHER, MEDICARE ==
[~2021-05-24] VITALS: Ht 152.4 cm; Wt 63.5 kg
[~2021-05-24 02:40] MED LIST changes: +CLOP75TA14 PO; +NITR0.4T50 SL; +PRAV40TA3 PO
[2021-05-24 03:32] VITALS: BP 148/52
[2021-05-24] MEDS ORDERED: DiphenhydrAMINE HCL 50 MG/ML VIAL IV ONE (04:00)
[2021-05-24] MEDS ORDERED: FAMOTIDINE 20MG VIAL IV ONE ×2 (04:00→04:12)
[2021-05-24] MEDS ORDERED: SOLU-MEDROL 125MG VIAL IVP ONE (04:00)
[2021-05-24] MEDS ORDERED: DiphenhydrAMINE HCL 50 MG/ML VIAL ONE (04:12)
[2021-05-24] MEDS ORDERED: SOLU-MEDROL 125MG VIAL ONE (04:12)
[2021-05-24] MEDS ORDERED: FAMO-136 PO (04:53)
[2021-05-24] MEDS ORDERED: METH4TAB3 PO (04:53)
[2021-05-24 05:04] VITALS: BP 137/49
== END 2021-05-24 05:10 | disposition home or self-care (01) ==
LOC: EDH 02:40
DX: L50.0 Allergic urticaria (principal); E11.9 Type 2 diabetes mellitus without complications; I10 Essential (primary) hypertension; I25.10 Atherosclerotic heart disease of native coronary artery without angina pectoris; Z79.02 Long term (current) use of antithrombotics/antiplatelets; Z79.52 Long term (current) use of systemic steroids; Z79.82 Long term (current) use of aspirin; Z79.899 Other long term (current) drug therapy; Z95.1 Presence of aortocoronary bypass graft
CPT/HCPCS: 96374; 96375; 99284; J1200; J2930; J3490

== ENCOUNTER 2023-02-19 10:09 | Emergency (ER) | payer OTHER, MEDICARE ==
[~2023-02-19] VITALS: Ht 160 cm; Wt 63.5 kg
[~2023-02-19 10:09] MED LIST changes: +CLOP-31 PO; -CLOP75TA14 PO; +FAMO-136 PO; +METH4TAB3 PO
[2023-02-19 10:46] LABS: BASOPHILS % (AUTO) 0.5 % (0.0-5.0); EOSINOPHILS % (AUTO) 2.6 % (0.0-8.0); HEMATOCRIT 45.8 % (36-48); LYMPHOCYTES % (AUTO) 34.7 % (21.0-51.0); MEAN CORPUSCULAR HEMOGLOBIN 30.1 pg (27.0-33.0); MEAN CORPUSCULAR HGB CONC 33.2 g/dL (32.0-36.0); MEAN CORPUSCULAR VOLUME 90.7 fL (79-99); NEUTROPHILS % (AUTO) 54.1 % (40.0-77.0); PLATELET COUNT (AUTO) 230 K/uL (130-400); RED BLOOD CELL COUNT(AUTO) 5.05 MIL/uL (4.00-5.50); RED CELL DISTRIBUTION WIDTH 13.3 % (11.0-15.5); WHITE BLOOD COUNT (AUTO) 7.8 K/uL (4.8-10.8)
[2023-02-19 11:49] LABS: APPEARANCE,URINE CLOUDY (CLEAR); BILIRUBIN,URINE NEGATIVE (NEGATIVE); COLOR,URINE YELLOW (YELLOW); GLUCOSE, URINE (UA) NEGATIVE (NEGATIVE); KETONES,URINE 5 mg/dL (NEGATIVE); LEUKOCYTE ESTERASE ,URINE 75 Leu/uL (NEGATIVE); NITRATE,URINE NEGATIVE (NEGATIVE); OCCULT BLOOD,URINE NEGATIVE (NEGATIVE); PROTEIN,URINE NEGATIVE (NEGATIVE); UROBILINOGEN,URINE 0.2 mg/dL (0.2-1.0)
[2023-02-19 12:28] LABS: ALBUMIN 3.9 g/dL (3.5-5.0); CREATININE 1.1 mg/dL (0.5-1.5); POTASSIUM 4.7 mmol/L (3.5-5.1); TOTAL PROTEIN, SERUM 7.3 g/dL (6.0-8.3)
[2023-02-19 12:42] LABS: BACTERIA,URINE RARE /HPF (None Seen); MUCUS,URINE RARE LPF (None Seen); SQUAMOUS EPITHELIAL CELL,UR MANY /HPF (0-2)
[2023-02-19] MEDS ORDERED: ACETAMINOPHEN 325 MG TAB PO ONE (13:00)
[2023-02-19] MEDS ORDERED: NITROFURANTOIN MONOHYD/M-CRYST 100 MG CAPSULE PO ONE (14:00)
[2023-02-19 14:30] VITALS: BP 132/74
[2023-02-19] MEDS ORDERED: MACR100 PO (14:35)
== END 2023-02-19 15:13 | disposition home or self-care (01) ==
LOC: EDH 10:09
DX: R10.31 Right lower quadrant pain (principal); N30.00 Acute cystitis without hematuria; I10 Essential (primary) hypertension; E11.9 Type 2 diabetes mellitus without complications; E78.00 Pure hypercholesterolemia, unspecified; Z79.899 Other long term (current) drug therapy; Z90.49 Acquired absence of other specified parts of digestive tract; Z98.890 Other specified postprocedural states
CPT/HCPCS: 36415; 74176; 80053; 81001; 85025; 87088